=== PATIENT | female | born 1970 | race African-American/Black ===

== ENCOUNTER 2017-07-07 18:39 | Emergency (ER) | payer OTHER ==
[2017-07-07 19:18] VITALS: BP 124/88
--- NOTE | 2017-07-07 19:44 | UC ---
Upper Extremity HPI - HPI Summary HPI Summary: States that about 3 days ago she was lifting a box with books and a sledge hammer fell on the volar surface of her right wrist. She has been using advil to no avail. She states she does not have baseline pain, only when flexing her middle finger. - History of Current Complaint Chief Complaint: UCUpperExtremity Stated Complaint: WRIST INJURY Time Seen by Provider: 07/07/17 18:51 Hx Obtained From: Patient Hx Last Menstrual Period: 05/30/17 ?: No Onset/Duration: Sudden Onset, Lasting Days Severity Initially: Mild Severity Currently: Moderate Pain Intensity: 4 Character: Dull Aggravating Factor(s): Flexion Alleviating Factor(s): Rest Associated Signs And Symptoms: Positive: Negative - Risk Factors Non-Orthopedic Risk Factor: Negative DVT Risk Factors: Negative Septic Arthritis Risk Factor: Negative - Allergies/Home Medications Allergies/Adverse Reactions: Allergies Allergy/AdvReac Type Severity Reaction Status Date / Time morphine Allergy See Comment Verified 07/07/17 19:20 Penicillins Allergy Hives/Diff. Verified 07/07/17 19:20 Breathing/I tching novacaine Allergy Fever Uncoded 12/28/15 10:42 PMH/Surg Hx/FS Hx/Imm Hx Previously Healthy: Yes Endocrine History: Dyslipidemia Cardiovascular History: Other - cardiac arrhythmia Other Cardiovascular History: cardiac arrhythmia Respiratory History: COPD - Surgical History Surgical History: Yes Surgery Procedure, Year, and Place: tubal ligation -. COLLAPSED LUNG 1997 - Family History Known Family History: Positive: Hypertension - Social History Alcohol Use: Occasionally Substance Use Type: None Smoking Status (MU): Current Every Day Smoker Type: Cigarettes Amount Used/How Often: 1 ppd Household Exposure Type: Cigarettes - Immunization History Most Recent Influenza Vaccination: 2014 Most Recent Tetanus Shot: utd Review of Systems Constitutional: Negative Musculoskeletal: Arthralgia All Other Systems Reviewed And Are Negative: Yes Physical Exam Triage Information Reviewed: Yes Appearance: Well-Appearing, No Pain Distress, Well-Nourished Vital Signs: Initial Vital Signs Temp 97.9 F 07/07/17 19:09 Pulse 83 07/07/17 19:09 Resp 16 07/07/17 19:09 BP 124/88 07/07/17 19:09 Pulse Ox 99 07/07/17 19:09 Vital Signs Reviewed: Yes Eyes: Positive: Conjunctiva Clear ENT: Positive: Pharynx normal Neck: Positive: Supple, Nontender, No Lymphadenopathy Respiratory: Positive: Chest non-tender, Lungs clear, Normal breath sounds, No respiratory distress Cardiovascular: Positive: RRR, No Murmur, Pulses Normal, Brisk Capillary Refill Musculoskeletal: Positive: Strength Intact, ROM Intact, No Edema, Other: - tender on palpation of volar right wrist midline. Radial and ulnar pulses symmetrical and present. Neurological: Positive: Alert Upper Extremity Course/Dx - Course Course Of Treatment: xrays are negative for fracture. Patient instructed to use wrist splint during day as needed and at night, referred to PT. Referral to PCP. Patient instructed with randall VINCENT as needed. - Differential Dx/Diagnosis Provider Diagnoses: Right Wrist Sprain Discharge - Sign-Out/Discharge Documenting (check all that apply): Discharge - Discharge Plan Condition: Stable Disposition: HOME Patient Education Materials: How to Stop Smoking (ED), Wrist Sprain (ED) Referrals: [facility] [Outside] No Primary Care Phys,NOPCP [Primary Care Provider] - - Billing Disposition and Condition Condition: STABLE Disposition: HOME
--- NOTE | 2017-07-07 20:26 | RAD ---
INDICATION: Radial side right wrist pain after "books fell on wrist" COMPARISON: Right hand radiograph dated arch 2014 TECHNIQUE: 3 views right wrist. REPORT: The visualized bones are properly aligned and well corticated. The joint spaces are normal.There is no fracture, dislocation or other focal osseous abnormality. IMPRESSION: Normal radiograph of the right wrist. If the patient's symptoms persist, follow-up imaging is recommended.
== END 2017-07-07 20:52 | disposition home or self-care (01) ==
LOC: UCEAST 18:39
DX: S63.501A Unspecified sprain of right wrist, initial encounter (principal); W20.8XXA Other cause of strike by thrown, projected or falling object, initial encounter; Y93.9 Activity, unspecified; Y92.9 Unspecified place or not applicable; E78.5 Hyperlipidemia, unspecified; I49.9 Cardiac arrhythmia, unspecified; J44.9 Chronic obstructive pulmonary disease, unspecified; Z88.4 Allergy status to anesthetic agent; Z88.5 Allergy status to narcotic agent; Z88.0 Allergy status to penicillin; F17.210 Nicotine dependence, cigarettes, uncomplicated; Z32.02 Encounter for pregnancy test, result negative
CPT/HCPCS: 84702; 99212; G0463

== ENCOUNTER 2017-08-23 11:37 | Emergency (ER) | payer OTHER ==
[2017-08-23 11:44] VITALS: BP 138/105
== END 2017-08-23 15:42 | disposition left against medical advice (07) ==
LOC: ED 11:37
DX: Z01.812 Encounter for preprocedural laboratory examination (principal); Z53.21 Procedure and treatment not carried out due to patient leaving prior to being seen by health care provider

== ENCOUNTER 2017-12-05 10:58 | Emergency (ER) | payer OTHER ==
[2017-12-05 11:09] VITALS: BP 127/90
--- NOTE | 2017-12-05 11:11 | UC ---
Bite Injury/Animal HPI - HPI Summary HPI Summary: 47 yo female presents with dog bite the left ankle. 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 She believes the dog is UTD with it's vaccinations, but is in the process of talking with the health department to monitor the dog. Pt says her last tetanus was within the last 2-3 years. - History of Current Complaint Chief Complaint: UCBiteInjury Stated Complaint: DOG BITE Time Seen by Provider: 12/05/17 11:10 Hx Obtained From: Patient Hx Last Menstrual Period: 05/30/17 Severity Currently: Mild Severity Initially: Mild Pain Intensity: 1 Pain Scale Used: 0-10 Numeric Onset/Duration: Sudden Onset Type of Bite: Animal Has Animal Been Immunized?: Yes Character: Abrasion/Laceration - Allergies/Home Medications Allergies/Adverse Reactions: Allergies Allergy/AdvReac Type Severity Reaction Status Date / Time morphine Allergy See Comment Verified 12/05/17 11:08 Penicillins Allergy Hives/Diff. Verified 12/05/17 11:08 Breathing/I tching novacaine Allergy Fever Uncoded 12/05/17 11:08 PMH/Surg Hx/FS Hx/Imm Hx Cardiovascular History: Cardiac Disease Respiratory History: COPD, Asthma - Surgical History Surgical History: Yes Surgery Procedure, Year, and Place: tubal ligation -. COLLAPSED LUNG 1997 - Family History Known Family History: Positive: Hypertension - Social History Occupation: Employed Full-time Lives: With Family Alcohol Use: Weekly Substance Use Type: None Smoking Status (MU): Heavy Every Day Tobacco Smoker Type: Cigarettes Amount Used/How Often: 1 ppd Household Exposure Type: Cigarettes - Immunization History Most Recent Influenza Vaccination: 2015 Most Recent Tetanus Shot: utd Review of Systems Constitutional: Negative Skin: Other - Dog bite left ankle Respiratory: Negative Cardiovascular: Negative Neurovascular: Negative Neurological: Negative Psychological: Negative All Other Systems Reviewed And Are Negative: Yes Physical Exam - Summary Physical Exam Summary: GENERAL: NAD. WDWN. No pain distress. SKIN: Left medial ankle with two 2-3mm puncture wounds and slight superficial skin tearing. No active bleeding, erythema, or edema. NECK: Supple. Nontender. No lymphadenopathy. CHEST: No accessory muscle use. Breathing comfortably and in no distress. CV: Pulses intact. Cap refill <2seconds NEURO: Alert. CN II-XII grossly intact. PSYCH: Age appropriate behavior. Triage Information Reviewed: Yes Vital Signs: Initial Vital Signs Temp 98.7 F 12/05/17 11:04 Pulse 95 12/05/17 11:04 Resp 18 12/05/17 11:04 BP 127/90 12/05/17 11:04 Pulse Ox 100 12/05/17 11:04 Vital Signs Reviewed: Yes Bite Injury Course/Dx - Course Course Of Treatment: Wound was irrigated with 500mL NS and telfa applied. Will place her on Doxy as per protocol and have her f/u with the Health Department. - Differential Dx/Diagnosis Provider Diagnoses: Dog bite left ankle Discharge - Sign-Out/Discharge Documenting (check all that apply): Patient Departure All imaging exams completed and their final reports reviewed: No Studies - Discharge Plan Condition: Stable Disposition: HOME Prescriptions: DOXYcycline CAP(*) [DOXYcycline 100MG CAP(*)] 100 mg PO BID #14 cap Patient Education Materials: Animal Bite (ED) Referrals: Torie To MD [Primary Care Provider] - Additional Instructions: If you develop a fever, shortness of breath, chest pain, new or worsening symptoms - please call your PCP or go to the ED. 1) Keep area bandaged until well healed - Billing Disposition and Condition Condition: STABLE Disposition: Home
== END 2017-12-05 11:28 | disposition home or self-care (01) ==
LOC: UCEAST 10:58
DX: S90.572A Other superficial bite of ankle, left ankle, initial encounter (principal); J44.9 Chronic obstructive pulmonary disease, unspecified; F17.210 Nicotine dependence, cigarettes, uncomplicated; Z88.5 Allergy status to narcotic agent; Z88.0 Allergy status to penicillin; Z88.4 Allergy status to anesthetic agent; W54.0XXA Bitten by dog, initial encounter; Y92.9 Unspecified place or not applicable
CPT/HCPCS: 99212; G0463

== ENCOUNTER → 2018-09-20 17:34 | Emergency (ER) | payer OTHER ==
[~2018-09-20 17:34] MED LIST: Acetaminophen TAB* 325 MG PO ONE; Iodixanol* (CONTRAST) 320 MG/ML 100 ML SDV IV ONE; Metoprolol Tartrate IV* 1 MG/ML 5 ML VIAL IV ONE; NS 0.9% 1000 ML** 1,000 ML IV ONE; Nicotine PATCH 14 MG/24 HR* PATCH TRANSDERM ONE; Nicotine Patch Removal NOTE PATCH OFF SCH
--- NOTE | 2018-09-20 17:46 | ED ---
Neurological HPI - HPI Summary HPI Summary: A 47 y/o F presents to ED c/o LUE and LLE numbness onset approx 1600. Associated sx: nausea, back pain, hot flashes, L jaw pain, unsteady gait, intermittent and throbbing WALSH rated 7/8 out of 10. Patient states last feeling well at 1030. Denies fever, chills, erythema of eyes, sore throat, CP, SOB, cough, abdominal pain, vomiting, dysuria, hematuria, edema, rash, or dizziness. PMHx: spontaneous PTX x3, OK, anemia. Patient is a smoker. ED provider and Dr. Bowles, neuro, at bedside immediately upon arrival. - History of Current Complaint Chief Complaint: EDNeurologicalDeficit Stated Complaint: TINGLINGNESS PER PT Hx Obtained From: Patient Hx Last Menstrual Period: ended 02/18/18 Onset/Duration: Started hours ago, Still Present Timing: Constant Onset Severity: Moderate Current Severity: Moderate Pain Intensity: 7 - WALSH Pain Scale Used: 0-10 Numeric Character: Numbness/Tingling - L-sided Associated Signs and Symptoms: Positive: Unsteady Gait, Headache, Pain - pos: back pain, jaw pain, Numbness - L-sided, Nausea/Vomiting - nausea. Negative: Dizziness, Fever, Chest Pain, Shortness of Breath - Allergy/Home Medications Allergies/Adverse Reactions: Allergies Allergy/AdvReac Type Severity Reaction Status Date / Time morphine Allergy See Comment Verified 09/20/18 18:32 Penicillins Allergy Hives/Diff. Verified 09/20/18 18:32 Breathing/I tching novacaine Allergy Fever Uncoded 02/20/18 16:28 Home Medications: Home Medications Albuterol HFA INHALER* [Ventolin HFA Inhaler*] 2 puff INH Q6H PRN 09/20/18 [ History Confirmed 09/20/18] Atorvastatin* [Lipitor*] 20 mg PO DAILY 09/20/18 [History Confirmed 09/20/18] BuPROPion XL* [Bupropion XL*] 300 mg PO DAILY 09/20/18 [History Confirmed ] Pantoprazole TAB * [Protonix TAB*] 40 mg PO DAILY 09/20/18 [History Confirmed ] PMH/Surg Hx/FS Hx/Imm Hx Previously Healthy: No Endocrine/Hematology History: Reports: Hx Thyroid Disease - Hyperthyroid - no meds for it yet Denies: Hx Diabetes Cardiovascular History: Denies: Hx Hypertension, Hx Pacemaker/ICD Respiratory History: Reports: Hx Asthma, Hx Chronic Obstructive Pulmonary Disease (COPD) History: Denies: Hx Renal Disease Musculoskeletal History: Denies: Hx Rheumatoid Arthritis, Hx Osteoporosis, Hx Scoliosis Sensory History: Denies: Hx Hearing Aid Neurological History: Reports: Other Neuro Impairments/Disorders - 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 COLLAPSED LUNG 1997. cardiac cath Infectious Disease History: No Infectious Disease History: Denies: Hx Hepatitis, Hx Human Immunodeficiency Virus (HIV), Hx of Known/ Suspected MRSA, Hx Shingles, Hx Tuberculosis, Hx Known/Suspected VRE, History Other Infectious Disease, Traveled Outside the [place] in Last 30 Days - Family History Known Family History: Positive: Hypertension Family History: aneurysms - Social History Occupation: Employed Full-time Lives: With Family Alcohol Use: Daily Alcohol Amount: 2-3 times/week Hx Substance Use: No Substance Use Type: Reports: None Hx Tobacco Use: Yes Smoking Status (MU): Heavy Every Day Tobacco Smoker Type: Cigarettes Amount Used/How Often: 2 ppd Review of Systems Positive: Other - pos: hot flashes. Negative: Fever, Chills Negative: Erythema Negative: Sore Throat Negative: Chest Pain Negative: Shortness Of Breath, Cough Positive: Nausea. Negative: Abdominal Pain, Vomiting Negative: dysuria, hematuria Musculoskeletal: Other - pos: back pain, L jaw pain Negative: Edema Negative: Rash Neurological: Other - neg: dizziness Positive: Headache - intermittent, Numbness - L-sided numbness/tingling All Other Systems Reviewed And Are Negative: Yes Physical Exam - Summary Physical Exam Summary: Constitutional: Well-developed, Well-nourished, Alert. (-) Distressed Skin: Warm, Dry HENT: Normocephalic; Atraumatic Eyes: Conjunctiva normal Neck: Musculoskeletal ROM normal neck. (-) JVD, (-) Stridor, (-) Tracheal deviation Cardio: Rhythm regular, rate normal, Heart sounds normal; Intact distal pulses; The pedal pulses are 2+ and symmetric. Radial pulses are 2+ and symmetric. (-) Murmur Pulmonary/Chest wall: Effort normal. Slightly diminished breaths on L side, (-) Wheezes, (-) Rales Abd: Soft. (-) Tenderness, (-) Distension, (-) Guarding, (-) Rebound Musculoskeletal: (-) Edema Lymph: (-) Cervical adenopathy Neuro: Alert, Oriented x3, Strength normal, Cranial nerves II-XII are grossly intact. (-) Dysmetria, (-) Nystagmus, (-) Ataxia by finger to nose testing, (-) Sensory deficit. Psych: Mood and affect Normal Triage Information Reviewed: Yes Vital Signs On Initial Exam: Initial Vitals Temp Pulse Resp BP Pulse Ox 98.3 F 96 18 172/122 98 09/20/18 17:37 09/20/18 17:37 09/20/18 17:37 09/20/18 17:37 09/20/18 17:37 Vital Signs Reviewed: Yes - Tati Coma Scale Best Eye Response: 4 - Spontaneous Best Motor Response: 6 - Obeys Commands Best Verbal Response: 5 - Oriented Coma Scale Total: 15 Diagnostics - Vital Signs Vital Signs Temp Pulse Resp BP Pulse Ox 09/20/18 17:37 98.3 F 96 18 172/122 98 - Laboratory Result Diagrams: 09/20/18 17:42 09/20/18 17:42 Lab Statement: Any lab studies that have been ordered have been reviewed, and results considered in the medical decision making process. - Radiology CXR Radiology Interpretation Completed By: ED Physician Summary of Radiographic Findings: Normal. - CT BRAIN CT CT Interpretation Completed By: Radiologist Summary of CT Findings: IMPRESSION: NO EVIDENCE FOR GROSS ACUTE INFARCT, MASS EFFECT OR HEMORRHAGE. ED provider has reviewed this report. C/A/P CTA CT Interpretation Completed By: Radiologist Summary of CT Findings: IMPRESSION: Severe emphysematous changes of the lungs with large bullae in the upper lobes right greater than left. No acute infiltrates. Normal thoracic aorta. Abdominal aorta is within normal limits without evidence of an aneurysm. No renal calculi or hydronephrosis. Full bladder. ED provider has reviewed this report. - EKG 1812 Cardiac Rate: NL - 85 bpm EKG Rhythm: Sinus Rhythm Summary of EKG Findings: No STEMI. - Additional Comments Diagnostic Additional Comments: Head MRA as read by radiologist: IMPRESSION: Normal brain MRA. ED provider has reviewed this report. Brain MRI as read by radiologist: IMPRESSION: Normal non-contrast brain MRI. ED provider has reviewed this report. Neck MRA as read by radiologist: IMPRESSION: Mildly stenotic right internal carotid artery at the origin. Otherwise normal neck MRA. ED provider has reviewed this report. NIH Scale - NIH Scale Level of Consciousness: Alert/Keenly Responsive Ask Patient the Month and His/Her Age: Both Correct Ask Pt to Open/Close Eyes and Cosmetics Demonstrator/Release Non-Paretic Hand: Both Correctly Best Gaze (Only Horizontal Eye Movement): Normal Visual Field Testing: No Visual Loss Facial Paresis-Pt to Smile & Close Eyes or Grimace Symmetry: Normal/Symmetrical Motor Function - Right Arm: No Drift-Holds 10 Seconds Motor Function - Left Arm: No Drift-Holds 10 Seconds Motor Function - Right Leg: No Drift-Holds 10 Seconds Motor Function - Left Leg: No Drift-Holds 10 Seconds Limb Ataxia-Must be out of Proportion to Weakness Present: Absent Sensory (Use Pinprick to Test Arms/Legs/Trunk/Face): Pinprick Less on Affected Best Language (Describe Picture, Name Items): No Aphasia Dysarthria (Read Several Words): Normal Extinction and Inattention: No Abnormality Total Score: 1 Re-Evaluation - Re-Evaluation 1 Re-Evaluation Time: 21:58 Change: Improved Comment: Discussing results with patient. All symptoms have resolved. BP is 122/ 70. Course/Dx - Course Course Of Treatment: Patient is a 47 y/o F presenting with LUE and LLE numbness , nausea, back pain, L jaw pain, unsteady gait and severe WALSH onset approx 1600. Last known well at 1030 this date. PMHx: spontaneous PTX x3, OK, anemia. Lab work is without significant abnormality. CXR is normal. Brain CT finds "NO EVIDENCE FOR GROSS ACUTE INFARCT, MASS EFFECT OR HEMORRHAGE. " C/A/P CTA shows "Severe emphysematous changes of the lungs with large bullae in the upper lobes right greater than left. No acute infiltrates. Normal thoracic aorta. Abdominal aorta is within normal limits without evidence of an aneurysm. No renal calculi or hydronephrosis. Full bladder.". Neck MRA shows "Mildly stenotic right internal carotid artery at the origin. Otherwise normal neck MRA. ED provider has reviewed this report. " Head MRA and Brain MRI are both negative. Consulted with Dr. Prado, hospitalist, who will admit patient. - Diagnoses Provider Diagnoses: Hypertensive emergency During the Visit The Following Alert/Code Occurred: Code [place] - 1738 - Physician Notifications Discussed Care Of Patient With: Shonna Prado - hospitalist Instructed by Provider To: Admit As Inpatient - Critical Care Time Critical Care Time: 30-74 min - 45 mins Discharge - Sign-Out/Discharge Documenting (check all that apply): Patient Departure - ADMIT Patient Received Moderate/Deep Sedation with Procedure: No - Discharge Plan Disposition: ADMITTED TO [facility] Referrals: Torie To MD [Primary Care Provider] - - Attestation Statements Document Initiated by Scribe: Yes Documenting Scribe: Shaq Crane Provider For Whom Scribe is Documenting (Include Credential): Dr. Sebastián Espinal MD Scribe Attestation: Shaq Jordan, scribed for Dr. Sebastián Espinal MD on 09/20/18 at 2202.
[2018-09-20 18:22] LABS: Hematocrit 38 % (35-47); Hemoglobin 12.5 g/dL (12.0-16.0); Mean Corpuscular HGB Conc 33 g/dL (31-36); Mean Corpuscular Hemoglobin 29 pg (27-31); Mean Corpuscular Volume 88 fL (80-97); Mean Platelet Volume 8.5 fL (7.4-10.4); Platelet Count 156 10^3/uL (150-450); Red Cell Distribution Width 14 % (10-15); White Blood Count 4.4 10^3/uL (3.5-10.8)
[2018-09-20 18:26] LABS: ABS Basophils 0.1 10^3/ul (0-0.2); ABS Lymphocytes 2.1 10^3/ul (1.0-4.8); ABS Monocytes 0.5 10^3/ul (0-0.8); ABS Neutrophils 1.8 10^3/ul (1.5-7.7); Eosinophil % 0.5 %; Lymphocyte % 46.8 %; Nucleated Red Blood Cells % 0.2
[2018-09-20 18:34] LABS: Activated Partial Thrombo Time 34.8 seconds (26.0-38.0); INR 0.98 (0.82-1.09)
[2018-09-20 18:38] LABS: Albumin 4.1 g/dL (3.2-5.2); Calcium 9.1 mg/dL (8.6-10.3); Potassium 3.4 mmol/L (3.5-5.0); Total Bilirubin 0.4 mg/dL (0.2-1.0)
[2018-09-20 18:44] LABS: Albumin/Globulin Ratio 1.3 (1-3); BUN/Creatinine Ratio 7.2 (8-20); EGFR African American 109.9 (>60); EGFR Non-African American 90.8 (>60); Globulin 3.2 g/dL (2-4); HDL Cholesterol 119.6 mg/dL; Total Protein 7.3 g/dL (6.4-8.9)
[2018-09-20 19:06] LABS: TSH (Thyroid Stimulating Horm) 0.62 mcIU/mL (0.34-5.60)
--- NOTE | 2018-09-20 23:07 | CONS ---
NEUROLOGY CONSULTATION REPORT: DATE OF CONSULT: 09/20/18 CONSULTING PROVIDER: Dr. Sebastián Espinal. REASON FOR CONSULT: Activated Code Hsieh to evaluate the patient for gradual onset left-sided paresthesias. CHIEF COMPLAINT: Left-sided numbness and tingling sensation. HISTORY OF PRESENT ILLNESS: Ms. Flaquita Solano is a 47-year-old right-handed female, who had a gradual-onset left-sided paresthesias that started at 1400. The patient's last known well time was 10:30 a.m. The patient stated that throughout the day she felt off with intermittent tingling sensation in the hand , left greater than right. She developed a tingling sensation that gradually ascended to involve the elbow and then the shoulder and eventually radiated to the neck area and then causing unassociated symptom of bilateral mormonism pain. She currently complains of a mild headache. She denied any word-finding difficulty or facial asymmetry. She denied any focal weakness or paresthesias, but does feel like the left side of her leg is heavy. She is found to have elevated blood pressure with systolic blood pressure in the 170s. She denied any double vision, blurry vision, dizziness, or rash. NIH Stroke Scale was 1 due to reduced sensation in the left side of the face, arm, and leg. PAST MEDICAL HISTORY: Anemia, spontaneous pneumothorax involving the left lung , myocardial infarction, tobacco abuse. HOME MEDICATIONS: 1. Symbicort. 2. Atorvastatin 20 mg p.o. daily. 3. Albuterol 2 puffs inhaled every 6 hours p.r.n. 4. Bupropion 300 mg p.o. daily. 5. Pantoprazole 40 mg p.o. daily. ALLERGIES: MORPHINE and PENICILLIN. FAMILY HISTORY: Normal family history of stroke or seizures. SOCIAL HISTORY: The patient works. 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 She smokes daily. Averages 1 to 1-1/2 pack per day for more than 20 years. She drinks alcohol occasionally. REVIEW OF SYSTEMS: A 14-point review of systems was obtained and otherwise negative except what was mentioned in the HPI. PHYSICAL EXAM: Vitals: 98.3, pulse of 72, respiratory rate of 19, and blood pressure of 172/122, but eventually went down to 113/95. General: Well- nourished, well-developed, frail female, in no acute distress. Head: Normocephalic, atraumatic. Eyes: Conjunctivae/corneas are clear. Neck is supple and symmetrical with no carotid bruit. No lymphadenopathy. Lungs are clear to auscultation bilaterally. Nonlabored breathing. Cardiovascular: Regular rate and rhythm with normal S1, S2. Radial pulses are palpable. Extremities: Normal range of motion with no cyanosis. Skin: No skin lesions or laceration. Psych: Affect is broad and normal mood. Neurological Examination: Mental status awake, alert, and oriented to person, place, time, and general circumstance. Speech and language including expression naming repetition and comprehension were assessed and found to be normal. Cranial Nerves: Normal confrontation testing bilaterally. Pupils are midrange and reactive to light. Extraocular muscles are intact. There is no ptosis. Sensation is intact in the forehead, cheeks, and jaw region. No facial droop. She is able to hear throughout the history process. Normal strength against shoulder shrug. Tongue is symmetrical and midline with no atrophy or fasciculation. Motor Examination: No abnormal movements or pronator drift. 5/ 5 strength in the upper and lower extremities symmetrically bilaterally. Reflexes: Brachioradialis 1/1, biceps 1/1, triceps 1/1, patella 1/1, ankle 0/0, plantar flexor/flexor. Sensation is reduced to light touch and pinprick on the left side of the face, arm, and legs. She has normal vibration at the toes bilaterally, proprioception is normal at the toes. Coordination normal [id number] and rapid alternating movement. Gait and station narrow based. Normal stance and gait. No ataxia. DIAGNOSTIC STUDIES/LAB DATA: CT head was ordered and showed no evidence of acute intracranial abnormality. CTA of the head and neck was not ordered given that we do not suspect that she has large vessel occlusion from her examination finding. Labs, imaging, and other diagnostic testing: WBC 4.4, hemoglobin 12.5, hematocrit of 38, platelet count of 156. INR is 0.98, sodium of 130, potassium 3.4, chloride is 97. AST 80, ALT 37. Vitamin B12 637. TSH 0.62. LDL is 104 , cholesterol is 227. ASSESSMENT AND PLAN: Ms. Flaquita Solano is a 47-year-old female with history of hypertension, tobacco use, and dyslipidemia, who presented to [facility] Emergency Department with new-onset gradual paresthesias involving the left upper extremity and left side of the face. This is associated with the headache. 1. Differential diagnosis is possible compensated migraine headache, symptomatic hypertensive urgency, or small ischemic stroke involving the right thalamus. NIH Stroke Scale was 1. She is not candidate for IV tPA or mechanical thrombectomy given her low NIH Stroke Scale and she is outside the therapeutic window given her last well known time is 10:30. Her risk factors for possible stroke includes tobacco use, dyslipidemia, and uncontrolled hypertension. 2. Uncontrolled hypertension. 3. History of pneumothorax. 4. Headaches. RECOMMENDATION: Admit for observation under the hospitalist service. Neuro checks every 4 hours. Start the patient on aspirin. Please perform bedside swallow evaluation. If the patient passes then start the patient on aspirin 325 x1 and then 81 mg tomorrow. PT/OT/COMPUTER TYPESETTER evaluate and treat. I ordered an MRI of the brain, MRA of the head, and MRA of the neck without contrast to evaluate for possible stroke. Please order 2D transthoracic echo with bubble study. Smoking cessation counseling was performed with the patient at bedside. She is not ready to quit. Continue atorvastatin, but increase the dose to 40 mg daily. Anticoagulation therapy with heparin subcu 5000 units subcutaneously every 8 hours. There is no indication for full anticoagulation therapy as there is no history of atrial fibrillation. Please allow normotensive blood pressure parameters between systolic 140 to less than 180. We may use acetaminophen 650 mg every 8 hours for her headache, which was greater than 5/10 in severity. TIME SPENT: Critical care time spent was 60 minutes of which more than 50% was spent obtaining history, examining the patient, evaluating the patient for tPA therapy, education, counseling, and discussing the treatment plan as mentioned above. [id number]/[facility] #: [id number] DIVYA
--- NOTE | 2018-09-20 23:14 | ED ---
Progress - Progress Note Progress Note: Pt is a sign-out to Dr. Grant from Dr. Espinal at shift change on 09/20/18 at 2314 pending hospitalist approval for admission. Re-Evaluation - Re-Evaluation 1 Re-Evaluation Time: 21:58 Change: Improved Comment: Discussing results with patient. All symptoms have resolved. BP is 122/ 70. Course/Dx - Course Course Of Treatment: Pt is a sign-out to Dr. Grant from Dr. Espinal at shift change on 09/20/18 at 2314 pending hospitalist approval for admission. A stress will be schudeled tomorrow in the AM per Dr. Prado, hospitalist. The pt will be called to set the appointment which will most likely be on Monday. The pt's blood pressure has been stable since being in the emergency room. The pt will discharged home with a Dx of a hypertensive emergency and a new script for Lisinopril. Pt will monitor her blood pressure as well. - Diagnoses Provider Diagnoses: Hypertensive emergency During the Visit The Following Alert/Code Occurred: Code [place] - 1737 - Provider Notifications Discussed Care Of Patient With: Shonna Prado Time Discussed With Above Provider: 02:13 Instructed by Provider To: Other - Hospitialist will call the pt tomorrow to schedule an appointment for monday09/24/18. - Critical Care Time Critical Care Time: 30-74 min - 45 mins Discharge - Sign-Out/Discharge Documenting (check all that apply): Patient Departure - discharge, Receiving Sign-Out Receiving patient FROM: Sebastián Espinal Patient Received Moderate/Deep Sedation with Procedure: No - Discharge Plan Condition: Stable Disposition: HOME Patient Education Materials: Hypertension (ED) Additional Instructions: You will received a call tomorrow to schedule an appointment for a stress test sometime next week. Please take the new medication that has been prescribed to you and take your blood pressure regularly. Please return to the emergency department with any new or worsening symptoms. - Attestation Statements Document Initiated by Scribe: Yes Documenting Scribe: Jan Urrutia Provider For Whom Scribe is Documenting (Include Credential): Cassie Grant MD Scribe Attestation: Jan Jordan, scribed for Cassie Grant MD on 09/21/18 at 0211. Status of Scribe Document: Ready
[2018-09-21 02:30] VITALS: BP 143/89
--- NOTE | 2018-09-21 04:40 | CONSULT ---
Subjective Date of Service: 09/20/18 Interval History: Asked by Dr. Espinal to eval patient for cardiac risk testing. Pt presented with nonspecific neurologic symptoms and was ruled out for cerebrovascular accident in ER. As one of the patient's presenting symptoms was jaw pain (although patient denies to me), she was asked to be evaluated for stress test. Pt denies chest pain on exertion - reporting she walked over 20 minutes yesterday without CP. She does have WHALEN at baseline given history of COPD and active tobacco use, and she reports this WHALEN is unchanged. She also reports history of "heart attack" when she had a pneumothorax in the 90s - however, likely this was a cardiac arrest and not related to CAD. Family History: Findings - father with DM, HTN, heart disease; mother with heart dz and 2 "heart bypasses" Social History: Findings - active tobacco use - 34 PY history; 1 beer daily; rare marijuana; lives with boyfriend; works in [employer] Past Medical History: Findings - COPD, pneumothorax c/b cardiac arrest Review of Systems - Measurements Intake and Output: Intake and Output Last 24 Hours 09/18/18 09/19/18 09/20/18 09/21/18 06:59 06:59 06:59 06:59 Weight 106 lb 1.6 oz - Review of Systems Constitutional Symptoms: Positive: Weakness, Fatigue Negative: Weight Loss, Night Sweats, Unexplained Falls Dermatology: Negative: Normal, Rash, Skin Lesions, Cancer, Skin Lumps, Other HEENT: Negative: Normal, Change in Hearing, Vertigo, Dental Problems, Tinnitus, Sinus Problem, Other Thyroid: Negative: Cold Intolerance, Heat Intolerance, Palpitations Pulmonary: Positive: Shortness of Breath, COPD Negative: Cough, Sputum, Hemoptysis, Wheezing, Respiratory Distress Cardiology: Positive: Shortness of Breath Negative: Chest Pain, Palpitations, Swelling of Ankles, Peripheral Vascular Dis, Edema, Faintness, Syncope, Claudication, Proximal NocturnalDyspnea, Orthopnoea Gastroenterology: Negative: Normal, Abdominal Pain, Nausea, Vomiting, Anorexia, Indigestion, Difficulty Swallowing, Heartburn, Constipation, Diarrhea, Blood in Stools, Change in Bowel Habits, Haematemesis, Melena, Other Musculoskeletal: Negative: Joint Pain, Joint Stiffness, Arthritis, Osteoporosis, Low Back Pain , Sciatica, Joint Deformities, Kyphoscoliosis, Other Endocrinology: Negative: Diabetes Mellitus Neurology: Positive: Numbness\\Paresthesiae Objective Active Medications: Pharmacy Profile Note (Nicotine Patch Removal Note*) 1 note PATCH OFF 2100 [address]ANDY Vital Signs - 8 hr 09/20/18 09/20/18 09/20/18 21:02 21:03 21:21 Temperature Pulse Rate 70 72 69 Respiratory 22 16 Rate Blood Pressure 141/92 133/103 (mmHg) O2 Sat by Pulse 100 98 99 Oximetry 09/20/18 09/20/18 09/20/18 21:51 22:00 22:21 Temperature Pulse Rate 64 66 69 Respiratory 12 21 17 Rate Blood Pressure 122/91 117/88 (mmHg) O2 Sat by Pulse 99 99 98 Oximetry 09/20/18 09/20/18 09/20/18 22:51 23:00 23:32 Temperature Pulse Rate 70 70 71 Respiratory 16 18 Rate Blood Pressure 139/91 133/81 (mmHg) O2 Sat by Pulse 98 98 99 Oximetry 09/20/18 09/20/18 09/21/18 23:51 23:58 00:00 Temperature Pulse Rate 64 76 75 Respiratory Rate Blood Pressure 136/96 (mmHg) O2 Sat by Pulse 100 100 99 Oximetry 09/21/18 09/21/18 09/21/18 00:21 00:51 01:00 Temperature Pulse Rate 67 81 88 Respiratory Rate Blood Pressure 134/93 133/94 (mmHg) O2 Sat by Pulse 99 99 99 Oximetry 09/21/18 09/21/18 09/21/18 01:51 02:00 02:28 Temperature 98.7 F Pulse Rate 79 64 64 Respiratory 16 Rate Blood Pressure 151/98 143/89 (mmHg) O2 Sat by Pulse 100 100 100 Oximetry Oxygen Devices in Use Now: None Appearance: thin, appears older than stated age; oddly related but answers questions appropriately Ears/Nose/Mouth/Throat: Clear Oropharnyx, Mucous Membranes Moist Neck: NL Appearance and Movements; NL JVP Respiratory: Clear to Auscultation Cardiovascular: NL Sounds; No Murmurs; No JVD, RRR Abdominal: NL Sounds; No Tenderness; No Distention Extremities: No Edema, No Clubbing, Cyanosis Skin: No Rash or Ulcers Neurological: Alert and Oriented x 3 Result Diagrams: 09/20/18 17:42 09/20/18 17:42 Assessment/Plan - Billing Unlikely that patient is experiencing cardiac chest pain. Jaw pain may be related to history of migraines. Cardiac risk stratification: SUZIE score of 0. Patient has a significant smoking history and family history for heart disease. She is amenable to outpatient stress test. Extensively discussed importance of smoking cessation - she is currently on Welbutrin and trying to taper her cigarette use.
== END | disposition home or self-care (01) ==
LOC: ED 17:34
DX: I16.1 Hypertensive emergency (principal); R26.81 Unsteadiness on feet; M54.5 Low back pain; R68.84 Jaw pain; R11.0 Nausea; I65.21 Occlusion and stenosis of right carotid artery; J43.9 Emphysema, unspecified; I25.2 Old myocardial infarction; Z98.61 Coronary angioplasty status; Z88.4 Allergy status to anesthetic agent; Z88.5 Allergy status to narcotic agent; Z88.0 Allergy status to penicillin; Z82.49 Family history of ischemic heart disease and other diseases of the circulatory system; Z83.3 Family history of diabetes mellitus; F17.210 Nicotine dependence, cigarettes, uncomplicated
CPT/HCPCS: 36415; 70450; 70544; 70547; 70551; 71045; 71275; 74174; 80053; 80061; 82607; 83605; 84443; 84484; 85025; 85610; 85730; 93005; 96361; 96374; 99285; A9270-GY; J3490; Q9967